=== PATIENT | female | born 1960 | race Caucasian/White ===

== ENCOUNTER 2018-02-28 19:33 | Emergency (ER) | payer OTHER ==
[~2018-02-28] VITALS: Ht 165.1 cm; Wt 131.1 kg
[2018-02-28] MEDS ORDERED: ASPIRIN 325 MG TABLET PO ONE (19:45)
[2018-02-28] MEDS ORDERED: IV NORMAL SALINE 1000ML BAG 1,000 ML IV ONE (20:15)
--- NOTE | 2018-02-28 20:15 | PHYS DOC ---
Past Medical History Past Medical History: A-Fib, Hypertension, Hypothyroid, Migraines, UTI ( recurrent) Past Surgical History: Appendectomy, Tonsillectomy Additional Past Surgical Histo: 2 C-sections, Rotator cuff surgery Smoking: Quit Greater Than 1 Year Alcohol Use: Rarely Drug Use: None Adult General Chief Complaint Chief Complaint: CHEST PAIN HPI HPI Patient is a 57 year old female who presents to the ED with a complaint of chest pain. She states she was at work when she began experiencing nausea, shortness of breath and chest pain. She notes she has had increased intermittent shortness of breath for the past 3 weeks that occurs at rest, at times. She also endorses heart palpitations, fatigue, weakness, and bilateral leg swelling more prominent on the right. She denies cough, diaphoresis, and neck pain. She states the pain began to radiate down her left arm. She called her bead flipper, Dr. Myers, who stated she should come in to the ED. She states the chest pain is located around the 4th and 5th ICS along the midclavicular line. She describes it as a "burning, cold sensation" and rates the pain as a 4/10. She states she had not eaten since 3am. She has not tried taking anything to help with the pain. Nothing makes the pain better or worse. Review of Systems Review of Systems Constitutional: Denies fever or chills Eyes: Denies change in visual acuity, redness, or eye pain HENT: Denies nasal congestion or sore throat Respiratory: Notes shortness of breath; Denies cough Cardiovascular: Notes chest pain and heart palpitations GI: Notes nausea; Denies abdominal pain or vomiting : Denies dysuria or hematuria Musculoskeletal: Notes left arm pain; Denies back pain or joint pain Integument: Denies rash or skin lesions Neurologic: Denies headache, focal weakness or sensory changes Complete systems were reviewed and found to be within normal limits, except as documented in this note Current Medications Current Medications Current Medications Medications (Trade) Dose Ordered Sig/Johnie Start Time Stop Time Status Last Admin Dose Admin Aspirin (Georges Aspirin) 325 mg 1X ONCE 02/28/18 19:45 02/28/18 20:24 DC 02/28/18 20:38 325 MG Sodium Chloride 1,000 ml @ 1,000 mls/hr 1X ONCE 02/28/18 20:15 02/28/18 21:14 DC 02/28/18 20:38 1,000 MLS/HR Home meds: levothyroxine, furosemide, nitrofurantoin, Cartia XT, topiramate, Eloquis Allergies Allergies Allergies Coded Allergies Type Severity Reaction Last Updated Verified morphine Allergy Intermediate Hives 02/28/18 Yes morphine- rash Physical Exam Physical Exam Constitutional: Well developed, well nourished, no acute distress, non-toxic appearance HENT: Normocephalic, atraumatic, oropharynx moist Eyes: EOMI, Conjunctiva normal, no discharge Neck: Normal range of motion, no tenderness, supple Cardiovascular: Heart rate regular rhythm, no murmur, cap refill <2 seconds Lungs & Thorax: Bilateral breath sounds clear to auscultation Abdomen: Soft, no tenderness Skin: Warm, dry, no erythema, no rash Back: No tenderness, no CVA tenderness Extremities: No tenderness, ROM intact, bilateral LE slightly edematous more prominent on the right, no pitting edema Neurologic: Alert and oriented X 3, normal motor function, normal sensory function, no focal deficits noted Psychologic: Affect normal, judgement normal, mood normal Current Patient Data Vital Signs Vital Signs Date Time Temp Pulse Resp B/P (MAP) Pulse Ox O2 Delivery O2 Flow Rate FiO2 02/28/18 19:39 98.8 64 16 171/83 (112) 98 Room Air 98.8 Lab Values Laboratory Tests Test 02/28/18 20:00 02/28/18 22:42 White Blood Count 4.4 x10^3/uL (4.0-11.0) Red Blood Count 3.79 x10^6/uL (3.50-5.40) Hemoglobin 12.3 g/dL (12.0-15.5) Hematocrit 36.4 % (36.0-47.0) Mean Corpuscular Volume 96 fL (79-100) Mean Corpuscular Hemoglobin 32 pg (25-35) Mean Corpuscular Hemoglobin Concent 34 g/dL (31-37) Red Cell Distribution Width 13.9 % (11.5-14.5) Platelet Count 200 x10^3/uL (140-400) Neutrophils (%) (Auto) 46 % (31-73) Lymphocytes (%) (Auto) 37 % (24-48) Monocytes (%) (Auto) 9 % (0-9) Eosinophils (%) (Auto) 6 % (0-3) H Basophils (%) (Auto) 1 % (0-3) Neutrophils # (Auto) 2.0 x10^3uL (1.8-7.7) Lymphocytes # (Auto) 1.6 x10^3/uL (1.0-4.8) Monocytes # (Auto) 0.4 x10^3/uL (0.0-1.1) Eosinophils # (Auto) 0.3 x10^3/uL (0.0-0.7) Basophils # (Auto) 0.0 x10^3/uL (0.0-0.2) Prothrombin Time 16.2 SEC (11.7-14.0) H Prothrombin Time INR 1.4 (0.8-1.1) H D-Dimer (Deanna) < 0.27 ug/mlFEU Sodium Level 144 mmol/L (136-145) Potassium Level 3.8 mmol/L (3.5-5.1) Chloride Level 108 mmol/L (98-107) H Carbon Dioxide Level 26 mmol/L (21-32) Anion Gap 10 (6-14) Blood Urea Nitrogen 15 mg/dL (7-20) Creatinine 1.0 mg/dL (0.6-1.0) Estimated GFR (Cockcroft-Gault) 57.4 BUN/Creatinine Ratio 15 (6-20) Glucose Level 89 mg/dL (70-99) Calcium Level 9.3 mg/dL (8.5-10.1) Magnesium Level 1.9 mg/dL (1.8-2.4) Total Bilirubin 0.3 mg/dL (0.2-1.0) Aspartate Amino Transferase (AST) 15 U/L (15-37) Alanine Aminotransferase (ALT) 28 U/L (14-59) Alkaline Phosphatase 72 U/L (46-116) Creatine Kinase 122 U/L (26-192) Troponin I Quantitative < 0.017 ng/mL (0.000-0.055) < 0.017 ng/mL (0.000-0.055) QY-Azk-X-Type Natriuretic Peptide 242 pg/mL (0-124) H Total Protein 7.1 g/dL (6.4-8.2) Albumin 4.2 g/dL (3.4-5.0) Albumin/Globulin Ratio 1.4 (1.0-1.7) Lipase 98 U/L (73-393) Laboratory Tests 02/28/18 20:00 Laboratory Tests 02/28/18 20:00 EKG EKG @ 19:39, normal sinus rhythm at 65 bpm, no ST elevations, low voltage QRS Radiology/Procedures Radiology/Procedures 2- view chest x-ray Course & Med Decision Making Course & Med Decision Making Patient is a 57 year old female who presents to the ED with a complaint of chest pain, nausea, and shortness or breath. Pertinent labs and imaging studies were obtained and reviewed (see chart for details). EKG was obtained @ 19:39 and showed normal sinus rhythm at [address] elevations and low voltage QRS. Initial tropnonins were negative. Her natriuretic-BNP was slightly elevated. D-dimer was negative. HEART score as calculated to be 2, which means low risk. 2-view chest x-ray was obtained and showed... Repeat troponins were Dragon Disclaimer Dragon Disclaimer This electronic medical record was generated, in whole or in part, using a voice recognition dictation system. Departure Departure Impression: Primary Impression: Atypical chest pain Disposition: 01 HOME, SELF-CARE Condition: STABLE Patient Instructions: Chest Pain (Nonspecific), Xadn-yf-Pohn Scripts Famotidine (PEPCID) 20 Mg Tablet 20 MG PO BID, #20 TAB Prov: NATANAEL SMITH DO 02/28/18 NATANAEL SMITH DO Feb 28, 2018 20:15
[2018-02-28 20:20] LABS: BASO % 1 % (0-3); EOS # 0.3 x10^3/uL (0.0-0.7); EOS % 6 % (0-3); HEMATOCRIT 36.4 % (36.0-47.0); HEMOGLOBIN 12.3 g/dL (12.0-15.5); LYMPH # 1.6 x10^3/uL (1.0-4.8); LYMPH % 37 % (24-48); MEAN CORPUSCULAR HEMOGLOBIN 32 pg (25-35); MEAN CORPUSCULAR HGB CONC 34 g/dL (31-37); MEAN CORPUSCULAR VOLUME 96 fL (79-100); MONO # 0.4 x10^3/uL (0.0-1.1); MONO % 9 % (0-9); NEUT % 46 % (31-73); PLATELET COUNT 200 x10^3/uL (140-400); RED BLOOD COUNT 3.79 x10^6/uL (3.50-5.40); RED CELL DISTRIBUTION WIDTH 13.9 % (11.5-14.5); WHITE BLOOD COUNT 4.4 x10^3/uL (4.0-11.0)
[2018-02-28 20:31] LABS: PROTHROMBIN TIME PATIENT 16.2 SEC (11.7-14.0)
[2018-02-28 20:33] LABS: CALCIUM 9.3 mg/dL (8.5-10.1); GFR 57.4; POTASSIUM 3.8 mmol/L (3.5-5.1)
[2018-02-28 20:39] LABS: ALBUMIN 4.2 g/dL (3.4-5.0); ALBUMIN/GLOBULIN RATIO 1.4 (1.0-1.7); MAGNESIUM 1.9 mg/dL (1.8-2.4); TOTAL BILIRUBIN 0.3 mg/dL (0.2-1.0); TOTAL PROTEIN 7.1 g/dL (6.4-8.2)
[2018-02-28 20:53] LABS: D-DIMER < 0.27 ug/mlFEU (0.00-0.50)
[2018-02-28 23:41] VITALS: BP 129/61
[2018-02-28] MEDS ORDERED: FAMO-63 PO (23:52)
--- NOTE | 2018-03-01 04:15 | RAD ---
PROCEDURE: CHEST PA LATERAL CLINICAL INDICATION: Chest pain today COMPARISON: None FINDINGS: No pneumothorax identified. Cardiac and mediastinal contours unremarkable. No pulmonary consolidation or acute airspace disease. No acute osseous abnormalities identified. Elevated right hemidiaphragm. IMPRESSION: No pulmonary consolidation or acute airspace disease. Electronically signed by: Ezequiel Ochoa DO (03/01/2018 4:11 AM) [facility]
--- NOTE | 2018-03-01 21:15 | EKG ---
[facility] [address] [place] [address] Test Date: 2018-02-28 Test Time: 19:39:52 Pat Name: ZAHCARIAH STANFORD Department: Room: Gender: F Order Takers Supervisor: : 1960 Requested By: NATANAEL SMITH Order Number: [id number] Reading MD: Measurements Intervals Broad Top Rate: 65 P: OR: QRS: 6 QRSD: 76 T: 4 QT: 438 QTc: 456 Interpretive Statements IRREGULAR RHYTHM, NO P-WAVE FOUND OTHERWISE NORMAL ECG RI6.01 No previous ECG available for comparison
== END 2018-03-01 00:15 | disposition home or self-care (01) ==
LOC: ER 19:33
DX: R07.89 Other chest pain (principal); R11.0 Nausea; R06.02 Shortness of breath; M79.602 Pain in left arm; M79.89 Other specified soft tissue disorders; I48.91 Unspecified atrial fibrillation; I10 Essential (primary) hypertension; E03.9 Hypothyroidism, unspecified; G43.909 Migraine, unspecified, not intractable, without status migrainosus; Z87.891 Personal history of nicotine dependence; Z90.89 Acquired absence of other organs; Z87.440 Personal history of urinary (tract) infections; Z88.5 Allergy status to narcotic agent
CPT/HCPCS: 36415; 71046; 80053; 82550; 83690; 83735; 83880; 84484; 85025; 85379; 85610; 93005; 99285; J7030

== ENCOUNTER → 2019-01-18 | Outpatient (CLI) | payer OTHER ==
[~2019-01-18] MED LIST: FAMO-63 PO
--- NOTE | 2019-01-18 11:03 | CARD ---
MR#: [id number] Date of Study: 01/18/2019 Ordering Physician: GONZALES MYERS, Referring Physician: GONZALES MYERS, Tech: APPROVED REPORT PROCEDURE: Successful implantation of [employer] Confirm loop recorder INDICATIONS: Recurrent palpitations r/o cardiac arrhythmia PROCEDURE DETAILS: An informed consent was obtained from patient. Patient was brought to the procedure suite and her le ft chest and shoulder were prepped and draped in the usual fashion. 20 mL of 2% lidocaine was infilt rated into the skin and subcutaneous tissues for local anesthesia. An incision was made in the left third intercostal space 1 inch from midsternal line and using the introducer provided with the kit a track was created in subcutaneous tissue. Subsequently, with the help of the deployer provided with the kit, a [employer] Confirm loop recorder serial number [id number] was placed in the subcutaneous tiss ue. Hemostasis was secured. Patient tolerated the procedure well. There were no immediate complic ations. At the end of procedure, the device showed sensing amplitude of 0.57mV. Signed by : Gonzales Myers, Electronically Approved : 01/18/2019 11:03:01
== END | disposition home or self-care (01) ==
LOC: LINQ 10:20
PROVIDERS: ATTEND Internal Medicine Cardiovascular Disease
DX: Z45.09 Encounter for adjustment and management of other cardiac device (principal); R00.2 Palpitations
CPT/HCPCS: 33285; C1764

== ENCOUNTER → 2019-02-18 | Outpatient (CLI) | payer OTHER ==
[~2019-02-18] MED LIST changes: +REGADENOSON 0.4 MG/5 ML DISP.SYRIN. IV ONE
--- NOTE | 2019-02-19 11:31 | RAD ---
MR#: [id number] Date of Study: 02/19/2019 Ordering Physician: GONZALES HOLLAND Referring Physician: LULU TSE Tech: RT Cammy Romero) (N) APPROVED REPORT Test Type: Pharmacological Stress Nurse/Tech: Chris COLLAZO Test Indications: CP, SOB Cardiac History: HTN, Increased Cholesterol, Loop implant, A-fib, See EMR Medications: See EMR Medical History: See EMR Resting ECG: SR Resting Heart Rate: 57 bpm Resting Blood Pressure: 130/77mmHg Pretest Chest Pain: No chest pain Nurse/Tech Notes Lungs CTA, Heart tones regular Consent: The procedure was explained to the patient in lay terms. Informed consent was witnessed. Saúl eout was entered into [employer]. History and Stress Test performed by RT Cammy Kendrick) (N) Pharm. Details Pharmacologic stress testing was performed using 0.4mg per 5ml of regadenoson given intravenously ove r 7-10 seconds. Stress Symptoms Dyspnea POST EXERCISE Reason for Termination: Infusion complete Max HR: 86 bpm Max Blood Pressure: 157/76mmHg Blood Pressure response to exercise: Normal blood pressure response during stress. Heart Rate response to exercise: WNL Chest Pain: No. Arrhythmia: No. ST Change: No. INTERPRETATION Stress EKG Conclusion: Baseline EKG showed sinus rhythm. Non-diagnostic changes at peak stress. No arrhythmias. Imaging Protocol IMAGE PROTOCOL: Rest Tc-99m/stress Tc-99m 1 day Rest: Stress: Viability: Radiopharm.Tc99m BepwzesfwHe10m Sestamibi Qikv34dPh 32mCi Duration 13min. 13min. Img Date 02/18/2019 02/19/2019 Inj-Img Iott20ckr. 60min. Rest Admin Site:IV - Right AntecubitalAdministrator:RT Zac RomeroR)(N) Stress Admin Site: IV - Right AntecubitalAdministrator: RT Cammy Kendrick)(N) STRESS DATA End Diast. Vol.102.0mlLVEDV index BSA44.0ml End Syst. Vol.23.0mlLVESV index BSA10.0ml Myocardial Rmnl992.0gEject. Mfybwuqe27.0% Stress Scores Regional WT0.00Summed WT5.00 Regional WM0.00Summed WM0.00 LV Perfusion Scintigraphic images showed small to moderate reversible defect involving the anterior wall consisten t with ischemia. Wall Motion Normal left ventricle systolic function with ejection fraction calculated at 77%. LV Perf. Quant 17 Seg. SSS9.00 17 Seg. SRS0.00 17 Seg. SDS9.00 Stress Defect Extent (% LAD)16.90Rest Defect Extent (% LAD)0.00Rev. Defect Extent (% LAD)16.90 Stress Defect Extent (% LCX) 23.80Rest Defect Extent (% LCX)0.00Rev. Defect Extent (% LCX)23.80 Stress Defect Extent (% RCA)0.00Rest Defect Extent (% RCA)0.00Rev. Defect Extent (% RCA)0.00 Stress Defect Extent (% MOOSE)12.40Rest Defect Extent (% MOOSE)0.00Rev. Defect Extent (% MOOSE)12.40 Conclusion 1. Regadenoson cardioisotope stress test showed ohxqc-wq-mrctzfhz amount of anterior wall ischemia. 2. Normal left ventricular systolic function with ejection fraction calculated at 77%. 3. Intermediate risk for cardiac events. Signed by : Gonzales Holland, Electronically Approved : 02/19/2019 11:30:36
== END | disposition home or self-care (01) ==
LOC: NM 07:40
PROVIDERS: ATTEND Internal Medicine Cardiovascular Disease
DX: I48.91 Unspecified atrial fibrillation (principal); I10 Essential (primary) hypertension; I25.89 Other forms of chronic ischemic heart disease
CPT/HCPCS: 78452; A9500; 93017; 96376; J2785

== ENCOUNTER → 2019-02-19 | Outpatient (CLI) | payer OTHER ==
[~2019-02-19] MED LIST changes: -REGADENOSON 0.4 MG/5 ML DISP.SYRIN. IV ONE
--- NOTE | 2019-02-19 11:23 | CARD ---
MR#: [id number] Date of Study: 02/19/2019 Ordering Physician: GONZALES HOLLAND, Referring Physician: GONZALES HOLLAND, Tech: Angelina Stevens APPROVED REPORT EXAM: Two-dimensional and M-mode echocardiogram with Doppler and color Doppler. Other Information Quality : AverageHR: 66bpm Technically limited study due to body habitus. INDICATION Chest Pain RISK FACTORS Hypertension Hyperlipidemia Previous smoker 2D DIMENSIONS RVDd2.8 (2.9-3.5cm)Left Atrium(2D)3.8 (1.6-4.0cm) IVSd1.3 (0.7-1.1cm)Aortic Root(2D)3.0 (2.0-3.7cm) LVDd5.5 (3.9-5.9cm)LVOT Diameter2.1 (1.8-2.4cm) PWd1.3 (0.7-1.1cm)LVDs3.0 (2.5-4.0cm) FS (%) 45.0 %SV111.6 ml Aortic Valve AoV Peak Yandel.164.7cm/sAoV VTI33.3cm AO Peak GR.10.8mmHgLVOT Peak Yandel.125.9cm/s LVOT VTI 30.60cmAO Mean GR.6mmHg HALLE (VMAX)1.06xf8VIO (VTI)3.09cm2 Mitral Valve MV E Igoxdfdy474.1cm/sMV DECEL TCTB981ke MV A Gvkwwiha68.0cm/sMV NNT09oq E/A Ratio1.6MVA (PHT)5.60cm2 TDI E/Lateral E'8.4E/Medial E'9.6 Pulmonary Valve PV Peak Ggwxbhbk221.9cm/sPV Peak Grad.5mmHg Tricuspid Valve TR P. Ugtzihxp356nn/sRAP SNRRLCVO6myOi TR Peak Gr.12qhKzBYCH75quDj Pulmonary Vein S1 Iccjazdo25.7cm/sD2 Ozqkcjyy01.0cm/s PVa vazlpdgu319vkgu LEFT VENTRICLE The left ventricle is normal size. There is normal left ventricular wall thickness. The left ventricu lar systolic function is normal and the ejection fraction is within normal range. The Ejection Fracti on is 60-65%. There is normal LV segmental wall motion. The left ventricular diastolic function and f illing is normal for age. RIGHT VENTRICLE The right ventricle is borderline dilated. There is normal right ventricular wall thickness. The righ t ventricular systolic function is normal. ATRIA The left atrium is borderline dilated. The right atrium size is normal. The interatrial septum is int act with no evidence for an atrial septal defect or patent foramen ovale as noted on 2-D or Doppler i maging. AORTIC VALVE The aortic valve is not well visualized. Doppler and Color Flow revealed no significant aortic regurg itation. There is no significant aortic valvular stenosis. MITRAL VALVE The mitral valve is normal in structure and function. There is no evidence of mitral valve prolapse. There is no mitral valve stenosis. Doppler and Color-flow revealed trace mitral regurgitation. TRICUSPID VALVE The tricuspid valve is normal in structure and function. Doppler and Color Flow revealed trace tricus pid regurgitation with an estimated PAP of 32 mmHg. There is no tricuspid valve stenosis. PULMONIC VALVE The pulmonic valve is not well visualized. Doppler and Color Flow revealed no pulmonic valvular regur gitation. GREAT VESSELS The aortic root is normal in size. The IVC is normal in size and collapses >50% with inspiration. PERICARDIAL EFFUSION There is no evidence of significant pericardial effusion. Critical Notification Critical Value: No <Conclusion> The left ventricle is normal size. The left ventricular systolic function is normal and the ejection fraction is within normal range. The Ejection Fraction is 60-65%. There is no significant aortic valvular stenosis. Doppler and Color Flow revealed no significant aortic regurgitation. Doppler and Color-flow revealed trace mitral regurgitation. Doppler and Color Flow revealed trace tricuspid regurgitation with an estimated PAP of 32 mmHg. Signed by : Justo Madison MD Electronically Approved : 02/19/2019 11:22:33
== END | disposition home or self-care (01) ==
LOC: ECHO 10:00
PROVIDERS: ATTEND Internal Medicine Cardiovascular Disease
DX: R07.9 Chest pain, unspecified (principal); I10 Essential (primary) hypertension; E78.5 Hyperlipidemia, unspecified; Z87.891 Personal history of nicotine dependence
CPT/HCPCS: 93306

== ENCOUNTER 2019-03-08 06:54 | Outpatient (CLI) | payer OTHER ==
[~2019-03-08] VITALS: Ht 165.1 cm; Wt 132.0 kg
[2019-03-08] VITALS (9 sets, daily range): BP systolic 105–141; BP diastolic 60–81
[2019-03-08] MEDS ORDERED: APIX5TAB PO (07:30)
[2019-03-08] MEDS ORDERED: LEVO75TA5 PO (07:30)
[2019-03-08] MEDS ORDERED: NITR100C63 PO (07:30)
[2019-03-08] MEDS ORDERED: BUPR150T6 PO (07:30)
[2019-03-08] MEDS ORDERED: DILT240C2 PO (07:30)
[2019-03-08] MEDS ORDERED: CHRO1TAB4 PO (07:30)
[2019-03-08] MEDS ORDERED: AMIO200T4 PO (07:30)
[2019-03-08] MEDS ORDERED: FURO40TA4 PO (07:30)
[2019-03-08] MEDS ORDERED: TOPI100T8 PO (07:30)
[2019-03-08] MEDS ORDERED: IODIXANOL 320 MG/ML 100 ML VIAL. ONE (07:44)
[2019-03-08] MEDS ORDERED: LIDOCAINE 1% PF 2 ML VIAL. ONE (07:45)
[2019-03-08 07:46] LABS: HEMATOCRIT 39.4 % (36.0-47.0); HEMOGLOBIN 13.1 g/dL (12.0-15.5); RED BLOOD COUNT 4.07 x10^6/uL (3.50-5.40); RED CELL DISTRIBUTION WIDTH 13.4 % (11.5-14.5); WHITE BLOOD COUNT 4.5 x10^3/uL (4.0-11.0)
[2019-03-08 07:51] LABS: CALCIUM 8.8 mg/dL (8.5-10.1); CREATININE 0.9 mg/dL (0.6-1.0); GFR 64.5; POTASSIUM 3.7 mmol/L (3.5-5.1)
[2019-03-08 07:53] LABS: PROTHROMBIN TIME PATIENT 13.1 SEC (11.7-14.0)
[2019-03-08] MEDS ORDERED: VERAPAMIL 5 MG/2 ML VIAL. ONE (08:30)
[2019-03-08] MEDS ORDERED: fentaNYL PF VIAL 100 MCG/2 ML VIAL ONE (08:30)
[2019-03-08] MEDS ORDERED: MIDAZOLAM HCL/PF 2 MG/2 ML VIAL. ONE (08:30)
[2019-03-08] MEDS ORDERED: NITROGLYCERIN 200 MCG/2 ML SYRINGE FOR CATH/VASC LAB. ONE (08:31)
[2019-03-08] MEDS ORDERED: HEPARIN for IV BOLUS 10,000 UNIT/10 ML VIAL. ONE (08:31)
[2019-03-08] MEDS ORDERED: IODIXANOL 320 MG/ML 100 ML VIAL. IART ONE (09:15)
[2019-03-08] MEDS ORDERED: LIDOCAINE 1% Multi-Dose 20 ML VIAL. INJ ONE (09:15)
[2019-03-08] MEDS ORDERED: fentaNYL PF VIAL 100 MCG/2 ML VIAL IV ONE (09:15)
[2019-03-08] MEDS ORDERED: VERAPAMIL 5 MG/2 ML VIAL. IART ONE (09:15)
[2019-03-08] MEDS ORDERED: CONTRAST GIVEN. MC PRN (09:15)
[2019-03-08] MEDS ORDERED: NITROGLYCERIN 200 MCG/2 ML SYRINGE FOR CATH/VASC LAB. IART ONE (09:15)
[2019-03-08] MEDS ORDERED: MIDAZOLAM HCL/PF 2 MG/2 ML VIAL. IV ONE (09:15)
[2019-03-08] MEDS ORDERED: HEPARIN for IV BOLUS 10,000 UNIT/10 ML VIAL. IART ONE (09:15)
[2019-03-08] MEDS ORDERED: IV 1/2 NORMAL SALINE 1,000 ML IV SCH (09:21)
--- NOTE | 2019-03-08 09:21 | PDOC ---
MODERATE SEDATION ASSESSMENT RISKS/ALTERNATIVES Risks/Alternatives Risks and alternatives of this type of sedation and procedure discussed with: RISK/ALTERNATIVES: Patient H & P ON CHART H & P H & P on chart and reviewed for co-morbid conditions and appropriate labs. H&P ON CHART: Yes STATUS PREG STATUS ASSESSED: N/A MEDS/ALLERGIES REVIEWED Meds/Allergies Reviewed Medications and Allergies including time and route of recently administered narcotics and sedatives. MEDS/ALLERGIES REVIEWED: Yes ASA RATING ASA RATING: III AIRWAY ASSESSMENT Airway Assessment Airway patency, oral function limitations, presence of caps, crowns, dentures, partials, and ability to extend neck assessed. AIRWAY ASSESSMENT: Yes MALLAMPATI SCORE MALLAMPATI SCORE: II PRE-SEDATION ASSESSMENT PRE-SEDATION ASSESSMENT: Yes GONZALES HOLLAND MD Mar 08, 2019 09:20
[2019-03-08] MEDS ORDERED: NITROGLYCERIN SUBLINGUAL 0.4 MG BOTTLE OF 25. SL PRN (09:30)
[2019-03-08] MEDS ORDERED: 0.9 % SODIUM CHLORIDE 10 ML DISP.SYRIN. IV PRN (09:30)
--- NOTE | 2019-03-08 12:25 | NUR ---
Discharge Note: ZACHARIAH STANFORD [facility] Discharge instructions and discharge home medications reviewed with Patient and a copy given. All questions have been answered and understanding verbalized. The following instructions and handouts were given: radial site care, moderate sedation Discontinued lines and drains: L wrist PIV dc'd. Patient discharged to home] withfamily. Pt ambulated and tolerated PO
--- NOTE | 2019-03-09 09:20 | CARD ---
MR#: [id number] Date of Study: 03/08/2019 Ordering Physician: GONZALES MYERS, Referring Physician: GONZALES MYERS, Tech: RT Radha (Raymond) TANIYA APPROVED REPORT Technologist: RT Radha (R) TANIYA Nurse: Radha Bernardo RN Procedure(s) performed: Left heart catheterization, selective coronary angiography and left ventricul ography via right transradial approach contrast 101 cc's Visipaque fluoro time 3.9 minutes dose 67.19 Gycm2 moderated sedation 20 minutes INDICATION The indication(s) include : Chest pain and positive stress test. [facility] Clinical Frailty Scale [facility] Clinical Frailty Scale: Managing Well Heart Failure Heart Failure: No PROCEDURE NARRATIVE After explaining the risks, benefits and alternative options, informed consent was obtained from chase ent. Patient was brought to the cardiac Damascener and right wrist was prepped and draped in the usual fashion after confirming a positive modified Marcelino's test. Arterial access was obtained in the righ t radial artery and a 6 Polish sheath was inserted. 6 Polish Rafael catheter was used to perform osiel ective angiography of the left and right coronary arteries. 6 Polish pigtail catheter was used to pe rform left ventriculography. Patient tolerated the procedure well. Hemostasis was achieved using TR band. There were no immediate complications. The following findings were noted. FINDINGS 1. Hemodynamics: Left ventricular end-diastolic pressure of 26 mmHg. No pullback gradient across th e aortic valve. 2. Left ventriculography: Normal left ventricle systolic function with ejection fraction estimated at 60%. No significant mitral regurgitation seen. 3. Coronary angiography: a. The left main coronary artery arose from the left sinus of Valsalva, gave rise to the left anteri or descending and left circumflex arteries and did not show any significant stenosis. b. The left anterior descending artery did not show any significant stenosis. c. The left circumflex artery did not show any significant stenosis. d. The right coronary artery was a large and dominant vessel arising from the right sinus of Valsalv a that did not show any significant stenosis. Conclusion 1. No significant coronary artery disease 2. Normal left ventricle systolic function with ejection fraction estimated at 60%. Signed by : Gonzales Myers, Electronically Approved : 03/08/2019 09:27:23
== END 2019-03-08 12:40 | disposition home or self-care (01) ==
LOC: CCL 06:54
PROVIDERS: ATTEND Internal Medicine Cardiovascular Disease
DX: R07.9 Chest pain, unspecified (principal); R94.39 Abnormal result of other cardiovascular function study
CPT/HCPCS: 36415; 80048; 85027; 85610; 93458; 99152; C1769; C1892; J1644; J2250; J3010; J3490; Q9967

== ENCOUNTER 2020-11-04 16:31 | Emergency (ER) | payer OTHER ==
[~2020-11-04] VITALS: Ht 165.1 cm; Wt 150.0 kg
[~2020-11-04 16:31] MED LIST changes: +AMIO200T6 PO; +APIX5TAB PO; +BUPR150T21 PO; +CHRO1TAB4 PO; +DILT240C2 PO; +FURO40TA4 PO; +LEVO75TA5 PO; +NITR100C63 PO; +TOPI100T8 PO
[2020-11-04 16:59] LABS: BILIRUBIN,URINE SMALL (NEG); CLARITY,URINE CLOUDY; COLOR,URINE YELLOW; NITRITE,URINE NEGATIVE (NEG); PROTEIN,URINE NEGATIVE (NEG-TRACE)
[2020-11-04 17:09] LABS: BACTERIA,URINE FEW /HPF (0-FEW); RBC,URINE 0 /HPF (0-2)
[2020-11-04] MEDS ORDERED: IV NORMAL SALINE 1000ML BAG 1,000 ML IV ONE (17:30)
[2020-11-04 17:50] LABS: BASO # 0.1 x10^3/uL (0.0-0.2); BASO % 1 % (0-3); EOS # 0.3 x10^3/uL (0.0-0.7); EOS % 3 % (0-3); HEMATOCRIT 34.1 % (36.0-47.0); HEMOGLOBIN 11.6 g/dL (12.0-15.5); LYMPH # 1.4 x10^3/uL (1.0-4.8); LYMPH % 13 % (24-48); MEAN CORPUSCULAR HEMOGLOBIN 33 pg (25-35); MEAN CORPUSCULAR HGB CONC 34 g/dL (31-37); MEAN CORPUSCULAR VOLUME 96 fL (79-100); MONO % 9 % (0-9); NEUT # 7.5 x10^3/uL (1.8-7.7); NEUT % 73 % (31-73); PLATELET COUNT 239 x10^3/uL (140-400); RED BLOOD COUNT 3.55 x10^6/uL (3.50-5.40); RED CELL DISTRIBUTION WIDTH 12.8 % (11.5-14.5); WHITE BLOOD COUNT 10.2 x10^3/uL (4.0-11.0)
[2020-11-04 17:59] LABS: CALCIUM 8.8 mg/dL (8.5-10.1); CREATININE 1.2 mg/dL (0.6-1.0); POTASSIUM 3.7 mmol/L (3.5-5.1)
[2020-11-04] MEDS ORDERED: ONDANSETRON PF 4 MG/2 ML VIAL. IV ONE (18:00)
[2020-11-04] MEDS ORDERED: fentaNYL PF VIAL 100 MCG/2 ML VIAL IV ONE (18:00)
[2020-11-04 18:05] LABS: ALBUMIN 3.6 g/dL (3.4-5.0); ALBUMIN/GLOBULIN RATIO 1.2 (1.0-1.7); MAGNESIUM 1.7 mg/dL (1.8-2.4); TOTAL BILIRUBIN 0.5 mg/dL (0.2-1.0); TOTAL PROTEIN 6.6 g/dL (6.4-8.2)
[2020-11-04] MEDS ORDERED: CONTRAST GIVEN. MC PRN (18:15)
[2020-11-04] MEDS ORDERED: IOHEXOL 300 MG/ML 100ML VIAL. IV ONE (18:15)
--- NOTE | 2020-11-04 19:23 | RAD ---
Abdominal and Pelvis CT, Without Contrast: History: Reason: llq abd pain, diarrhea / Spl. Instructions: omni 300 60ml / History: Comparison: None. Procedure: Axial images are obtained of the abdomen and pelvis, without IV or oral contrast. Oral Contrast: No Findings: Evaluation of solid organs is limited without contrast. There is patchy opacity in the right lung base. There is a stone in the gallbladder but no wall thick ening or surrounding inflammation. The appendix is not well seen. There is a trace of free fluid the pelvis and there is pericolonic inflammation involving the proxima l sigmoid colon. A trace of air in the urinary bladder is likely from prior instrumentation. Liver: Normal. Spleen: Normal. Pancreas: Normal. Adrenal Glands: Normal. Kidneys: Normal. There is no free. There is no lymphadenopathy. Impression: 1. Right basal infiltrate likely discoid atelectasis. 2. Diverticulitis. 3. Trace of free fluid the pelvis. 4. Cholelithiasis without evidence for acute cholecystitis. End impression PQRS Compliance Statement: One or more of the following individualized dose reduction techniques were utilized for this examinat ion: 1. Automated exposure control 2. Adjustment of the mA and/or kV according to patient size 3. Use of iterative reconstruction technique Electronically signed by: Kevin Castillo III, MD (11/04/2020 7:20 PM) [facility]
[2020-11-04] MEDS ORDERED: HYDR-2761 PO (19:51)
[2020-11-04] MEDS ORDERED: METR500T PO (19:51)
[2020-11-04] MEDS ORDERED: ONDA-84 PO (19:51)
[2020-11-04] MEDS ORDERED: CIPR500T94 PO (19:51)
--- NOTE | 2020-11-04 19:51 | ED.ADGEN ---
Past Medical History Past Medical History: A-Fib, Diverticulitis, High Cholesterol, Hypertension, Hypothyroid, Migraines, UTI Past Surgical History: Appendectomy, Tonsillectomy Additional Past Surgical Histo: 2 C-sections, L Rotator cuff surgery Smoking Status: Former Smoker Alcohol Use: Rarely Drug Use: None General Adult EDM: Chief Complaint: ABDOMINAL PAIN HPI: HPI: Patient is a 60 year old female, coming by her daughter, who presents emergency department with complaints of lower left quadrant abdominal pain and decreased appetite for the last 3 days. Patient reports that she took stool softeners yesterday because she thought that the pain might be due to constipation. She reports she had a normal bowel movement yesterday and then today she had a loose bowel movement. Patient denies any blood in her stools. She reports a history of diverticulosis but has never had diverticulitis. She denies any fever, nausea, vomiting, chest pain, palpitations, shortness of breath, cough, edema, fever, body aches, fatigue, or weakness. Patient denies any dysuria, hematuria, or increased urinary frequency. She currently rates her discomfort a 5 out of 10 on the pain scale, she denies any alleviating or exacerbating factors. Review of Systems: Review of Systems: Complete ROS is negative unless otherwise noted in HPI. Current Medications: Current Medications Medications (Trade) Dose Ordered Sig/[facility] Start Time Stop Time Status Last Admin Dose Admin Fentanyl Citrate (Fentanyl 2ml Vial) 50 mcg 1X ONCE 11/04/20 18:00 11/04/20 18:01 DC 11/04/20 17:49 50 MCG Info (CONTRAST GIVEN -- Rx MONITORING) 1 each PRN DAILY PRN 11/04/20 18:15 11/04/20 20:30 DC Iohexol (Omnipaque 300 Mg/ml) 60 ml 1X ONCE 11/04/20 18:15 11/04/20 18:16 DC Ondansetron HCl (Zofran) 4 mg 1X ONCE 11/04/20 18:00 11/04/20 18:01 DC 11/04/20 17:49 4 MG Sodium Chloride 1,000 ml @ 1,000 mls/hr 1X ONCE 11/04/20 17:30 11/04/20 18:29 DC 11/04/20 17:49 1,000 MLS/HR Allergies: Allergies: Allergies Coded Allergies Type Severity Reaction Last Updated Verified morphine Allergy Intermediate Hives 02/28/18 Yes Physical Exam: PE: See Above Constitutional: Well developed, well nourished, no acute distress, non-toxic appearance, obese. [] HENT: Normocephalic, atraumatic, bilateral external ears normal, nose normal. [] Eyes: PERRLA, EOMI, conjunctiva normal, no discharge. [] Neck: Normal range of motion, no stridor. [] Cardiovascular:Heart rate regular rhythm Lungs & Thorax: Respirations even and unlabored, no retractions, no respiratory distress Abdomen: soft, LLQ TTP, no rebound tenderness, guarding, abdomen is otherwise soft and nontender, no palpable masses, no pulsatile masses Skin: Warm, dry, no erythema, no rash. [] Extremities: No cyanosis, ROM intact, no edema. [] Neurologic: Alert and oriented X 3, normal motor, normal sensory, no focal deficits noted. [] Psychologic: Affect normal, judgement normal, mood normal. [] Current Patient Data: Labs: Laboratory Tests Test 11/04/20 16:35 11/04/20 17:39 Urine Collection Type Unknown Urine Color Yellow Urine Clarity Cloudy Urine pH 6.0 (<5.0-8.0) Urine Specific [place] 1.025 (1.000-1.030) Urine Protein Negative mg/dL (NEG-TRACE) Urine Glucose (UA) Negative mg/dL (NEG) Urine Ketones (Stick) Negative mg/dL (NEG) Urine Blood Negative (NEG) Urine Nitrite Negative (NEG) Urine Bilirubin Small (NEG) Urine Urobilinogen Dipstick 1.0 mg/dL (0.2 mg/dL) Urine Leukocyte Esterase Moderate (NEG) Urine RBC 0 /HPF (0-2) Urine WBC 11-20 /HPF (0-4) Urine Squamous Epithelial Cells Mod /LPF Urine Bacteria Few /HPF (0-FEW) Urine Mucus Mod /LPF White Blood Count 10.2 x10^3/uL (4.0-11.0) Red Blood Count 3.55 x10^6/uL (3.50-5.40) Hemoglobin 11.6 g/dL (12.0-15.5) L Hematocrit 34.1 % (36.0-47.0) L Mean Corpuscular Volume 96 fL (79-100) Mean Corpuscular Hemoglobin 33 pg (25-35) Mean Corpuscular Hemoglobin Concent 34 g/dL (31-37) Red Cell Distribution Width 12.8 % (11.5-14.5) Platelet Count 239 x10^3/uL (140-400) Neutrophils (%) (Auto) 73 % (31-73) Lymphocytes (%) (Auto) 13 % (24-48) L Monocytes (%) (Auto) 9 % (0-9) Eosinophils (%) (Auto) 3 % (0-3) Basophils (%) (Auto) 1 % (0-3) Neutrophils # (Auto) 7.5 x10^3/uL (1.8-7.7) Lymphocytes # (Auto) 1.4 x10^3/uL (1.0-4.8) Monocytes # (Auto) 1.0 x10^3/uL (0.0-1.1) Eosinophils # (Auto) 0.3 x10^3/uL (0.0-0.7) Basophils # (Auto) 0.1 x10^3/uL (0.0-0.2) Sodium Level 144 mmol/L (136-145) Potassium Level 3.7 mmol/L (3.5-5.1) Chloride Level 106 mmol/L (98-107) Carbon Dioxide Level 25 mmol/L (21-32) Anion Gap 13 (6-14) Blood Urea Nitrogen 12 mg/dL (7-20) Creatinine 1.2 mg/dL (0.6-1.0) H Estimated GFR (Cockcroft-Gault) 46.0 BUN/Creatinine Ratio 10 (6-20) Glucose Level 91 mg/dL (70-99) Calcium Level 8.8 mg/dL (8.5-10.1) Magnesium Level 1.7 mg/dL (1.8-2.4) L Total Bilirubin 0.5 mg/dL (0.2-1.0) Aspartate Amino Transferase (AST) 8 U/L (15-37) L Alanine Aminotransferase (ALT) 19 U/L (14-59) Alkaline Phosphatase 88 U/L (46-116) Total Protein 6.6 g/dL (6.4-8.2) Albumin 3.6 g/dL (3.4-5.0) Albumin/Globulin Ratio 1.2 (1.0-1.7) Lipase 51 U/L (73-393) L Laboratory Tests 11/04/20 17:39 Laboratory Tests 11/04/20 17:39 Vital Signs: Vital Signs Date Time Temp Pulse Resp B/P (MAP) Pulse Ox O2 Delivery O2 Flow Rate FiO2 11/04/20 20:20 71 18 137/70 (92) 99 Room Air 11/04/20 17:09 98.6 98.6 EKG: EKG: [] Heart Score: C/O Chest Pain: No Risk Scores: Score 0 - 3: 2.5% MACE over next 6 weeks - Discharge Home Score 4 - 6: 20.3% MACE over next 6 weeks - Admit for Clinical Observation Score 7 - 10: 72.7% MACE over next 6 weeks - Early Invasive Strategies Radiology/Procedures: Radiology/Procedures: PROCEDURE: CT ABD PELV W/ IV CONTRST ONLY Abdominal and Pelvis CT, Without Contrast: History: Reason: llq abd pain, diarrhea / Spl. Instructions: omni 300 60ml / History: Comparison: None. Procedure: Axial images are obtained of the abdomen and pelvis, without IV or oral contrast. Oral Contrast: No Findings: Evaluation of solid organs is limited without contrast. There is patchy opacity in the right lung base. There is a stone in the gallbladder but no wall thickening or surrounding inflammation. The appendix is not well seen. There is a trace of free fluid the pelvis and there is pericolonic inflammation involving the proximal sigmoid colon. A trace of air in the urinary bladder is likely from prior instrumentation. Liver: Normal. Spleen: Normal. Pancreas: Normal. Adrenal Glands: Normal. Kidneys: Normal. There is no free. There is no lymphadenopathy. Impression: 1. Right basal infiltrate likely discoid atelectasis. 2. Diverticulitis. 3. Trace of free fluid the pelvis. 4. Cholelithiasis without evidence for acute cholecystitis. End impression PQRS Compliance Statement: One or more of the following individualized dose reduction techniques were utilized for this examination: 1. Automated exposure control 2. Adjustment of the mA and/or kV according to patient size 3. Use of iterative reconstruction technique Electronically signed by: Errol Castillo III, MD (11/04/2020 7:20 PM) [facility] DICTATED and SIGNED BY: ERROL CASTILLO III, MD DATE: 11/04/20 [id number] [] Course & Med Decision Making: Course & Med Decision Making Pertinent Labs and Imaging studies reviewed. (See chart for details) [] David Disclaimer: David Disclaimer: This electronic medical record was generated, in whole or in part, using a voice recognition dictation system. Departure Departure Impression: Primary Impression: Diverticulitis Additional Impression: Left lower quadrant abdominal pain Disposition: HOME / SELF CARE / HOMELESS Condition: STABLE Referrals: LILLY STANLEY MD (PCP) Patient Instructions: Diverticulitis, [id number] Additional Instructions: Fill the prescriptions and use as directed. Recommend clear fluid diet for 24 hours then advance diet as tolerated, follow-up with your primary care doctor in 1 to 2 days for reevaluation, return to the ER symptoms worsen or fever develops. Scripts Hydrocodone Bit/Acetaminophen (HYDROCODONE-APAP 5-325 ) 1 Tab Tablet 1 TAB PO PRN Q6HRS PRN for PAIN for 3 Days, #12 TAB 0 Refills Prov: ELICEO MILLER PROFESSOR OF PHYSICS 11/04/20 Ondansetron Hcl (ONDANSETRON HCL) 4 Mg Tablet 1 TAB PO PRN Q6HRS PRN for NAUSEA/VOMITING for 3 Days, #10 TAB 0 Refills Prov: ELICEO MILLER APRN 11/04/20 Metronidazole (FLAGYL) 500 Mg Tablet 500 MG PO TID for 10 Days, #30 TAB 0 Refills Prov: ELICEO MILLER PROFESSOR OF PHYSICS 11/04/20 Ciprofloxacin Hcl (CIPRO) 500 Mg Tablet 1 TAB PO BID for 10 Days, #20 TAB 0 Refills Prov: ELICEO MILLER PROFESSOR OF PHYSICS 11/04/20 Problem Qualifiers ELICEO MILLER PROFESSOR OF PHYSICS November 04, 2020 19:51
[2020-11-04 20:20] VITALS: BP 137/70
== END 2020-11-04 20:30 | disposition home or self-care (01) ==
LOC: ER 16:31
DX: K57.92 Diverticulitis of intestine, part unspecified, without perforation or abscess without bleeding (principal); I48.91 Unspecified atrial fibrillation; E78.00 Pure hypercholesterolemia, unspecified; I10 Essential (primary) hypertension; E03.9 Hypothyroidism, unspecified; G43.909 Migraine, unspecified, not intractable, without status migrainosus; Z87.891 Personal history of nicotine dependence; Z90.89 Acquired absence of other organs; Z87.440 Personal history of urinary (tract) infections; Z88.5 Allergy status to narcotic agent
CPT/HCPCS: 36415; 74177; 80053; 81001; 83690; 83735; 85025; 87086; 96361; 96374; 96375; 99285; J2405; J3010; J7030

== ENCOUNTER → 2021-02-08 | Outpatient (CLI) | payer OTHER ==
[~2021-02-08] MED LIST changes: +CIPR500T94 PO; +HYDR-2761 PO; +METR500T PO; +ONDA-84 PO
--- NOTE | 2021-02-08 16:22 | CARD ---
MR#: [id number] Date of Study: 02/08/2021 Ordering Physician: GONZALES MYERS, Referring Physician: GONZALES MYERS, Tech: Angelina Stevens, [facility] APPROVED REPORT EXAM: Two-dimensional and M-mode echocardiogram with Doppler and color Doppler. Other Information Quality : AverageHR: 57bpm INDICATION Atrial Fibrillation RISK FACTORS Hypertension Hyperlipidemia Asthma 2D DIMENSIONS Left Atrium(2D)3.6 (1.6-4.0cm)IVSd1.1 (0.7-1.1cm) Aortic Root(2D)3.3 (2.0-3.7cm)LVDd5.6 (3.9-5.9cm) LVOT Diameter2.2 (1.8-2.4cm)PWd1.2 (0.7-1.1cm) LVDs3.0 (2.5-4.0cm)FS (%) 46.4 % SV117.9 mlLVEF(%)71.2 (>50%) Aortic Valve AoV Peak Yandel.148.5cm/sAoV VTI32.7cm AO Peak GR.8.8mmHgLVOT Peak Yandel.111.8cm/s LVOT VTI 28.92cmAO Mean GR.4mmHg HALLE (VMAX)2.93zy1ISB (VTI)3.38cm2 Mitral Valve MV E Kqznvbni26.1cm/sMV DECEL AVDR347lf MV A Wkggxbnk88.7cm/sMV E Mean Gr.1mmHg MV ZNV55dxT/A Ratio1.5 MVA (PHT)3.02cm2 TDI E/Lateral E'8.0E/Medial E'8.2 Pulmonary Valve PV Peak Cbtlfudz55.7cm/sPV Peak Grad.3mmHg Tricuspid Valve TR P. Ffonnige194gl/sRAP YRYWANZR2yzAp TR Peak Gr.04exXsWSRD23nvLm Pulmonary Vein S1 Xzujienc58.8cm/sD2 Ddrjpriu53.3cm/s PVa [id number] LEFT VENTRICLE The left ventricle is normal size. There is mild concentric left ventricular hypertrophy. The left ve ntricular systolic function is normal. The Ejection Fraction is 60-65%. There is normal LV segmental wall motion. The left ventricular diastolic function and filling is normal for age. RIGHT VENTRICLE The right ventricle is borderline dilated. There is normal right ventricular wall thickness. The righ t ventricular systolic function is normal. ATRIA The left atrium is mildly dilated. The right atrium is borderline dilated. The interatrial septum is intact with no evidence for an atrial septal defect or patent foramen ovale as noted on 2-D or Dopple r imaging. AORTIC VALVE The aortic valve is normal in structure and function. Doppler and Color Flow revealed no significant aortic regurgitation. There is no significant aortic valvular stenosis. Calculated aortic valve area is 1.19 cm2 with maximum pressure gradient of 11 mmHg and mean pressure gradient of 3 mmHg. MITRAL VALVE The mitral valve is normal in structure and function. There is no evidence of mitral valve prolapse. There is no mitral valve stenosis. Doppler and Color-flow revealed trace mitral regurgitation. TRICUSPID VALVE The tricuspid valve is normal in structure and function. Doppler and Color Flow revealed trace tricus pid regurgitation with an estimated PAP of 31 mmHg. There is no tricuspid valve stenosis. PULMONIC VALVE The pulmonic valve is not well visualized. Doppler and Color Flow revealed trace pulmonic valvular re gurgitation. GREAT VESSELS The aortic root is normal in size. The ascending aorta is normal in size. The IVC is normal in size a nd collapses >50% with inspiration. PERICARDIAL EFFUSION There is no evidence of significant pericardial effusion. Critical Notification Critical Value: No <Conclusion> The left ventricular systolic function is normal. The Ejection Fraction is 60-65%. There is normal LV segmental wall motion. Trace mitral regurgitation. Trace tricuspid regurgitation with an estimated PAP of 31 mmHg. There is no evidence of significant pericardial effusion. Signed by : Gonzales Myers, Electronically Approved : 02/08/2021 16:22:01
== END ==
LOC: ECHO 08:26
PROVIDERS: ATTEND Internal Medicine Cardiovascular Disease
DX: I51.7 Cardiomegaly (principal); I48.0 Paroxysmal atrial fibrillation; I10 Essential (primary) hypertension; E78.5 Hyperlipidemia, unspecified; J45.909 Unspecified asthma, uncomplicated
CPT/HCPCS: 93306